=== PATIENT | male | born 1955 | race Caucasian/White ===

== ENCOUNTER 2022-11-17 21:47 | Emergency (ER) | payer OTHER ==
[~2022-11-17] VITALS: Ht 180.3 cm; Wt 113.4 kg
[2022-11-17 21:47] VITALS: BP 160/95
--- NOTE | 2022-11-17 21:48 | NUR ---
TO LOBBY A/W BED VIA W/C WITH C/O BILATERAL LEG PAIN, AND PAIN, NAUSEA
--- NOTE | 2022-11-18 00:10 | NUR ---
PATIENT LEFT WITHOUT BEING SEEN BY DR. Pedraza. NO FURTHER CARE PROVIDED FOR PATIENT.
== END 2022-11-18 00:10 | disposition left against medical advice (07) ==
LOC: MED 21:47
DX: M79.89 Other specified soft tissue disorders (principal); R10.9 Unspecified abdominal pain; R19.7 Diarrhea, unspecified; R11.0 Nausea; Z53.21 Procedure and treatment not carried out due to patient leaving prior to being seen by health care provider